=== PATIENT | male | born 1995 | race Caucasian/White ===

== ENCOUNTER 2024-06-13 16:57 | Emergency (ER) | payer BC ==
[~2024-06-13] VITALS: Ht 185.4 cm; Wt 109.1 kg
[2024-06-13 17:02] VITALS: TEMP 97.9
[2024-06-13 17:25] LABS: BASO % 0.6 % (0.0-2.0); EOS # 0.1 K/mm3 (0.0-0.7); EOS % 1.4 % (0.0-4.0); GRAN # 3.2 K/mm3 (1.4-6.5); GRAN % 44.9 % (42.2-75.2); HEMATOCRIT 45.7 % (42.0-52.0); HEMOGLOBIN 15.8 g/dl (13.5-18.0); LYMPH # 3.4 K/mm3 (1.2-3.4); LYMPH % 47.3 % (20.0-51.0); MEAN CELL VOLUME 85 fl (80.0-100.0); MEAN CORPUSCULAR HEMOGLOBIN 29 pg (27-31); MEAN CORPUSCULAR HGB CONC 35 g/dl (33.0-37.0); MONO # 0.4 K/mm3 (0.1-0.6); MONO % 5.5 % (1.7-9.3); PLATELET COUNT 263 K/mm3 (130-400); RED BLOOD COUNT 5.39 M/mm3 (4.20-5.60); REDCELL DISTRIBUTION WIDTH-CV 12.8 % (11.5-14.5)
[2024-06-13] MEDS ORDERED: NS 1,000 ML IV ONE (17:30)
[2024-06-13] MEDS ORDERED: LORazepam 2 MG/ML 1 ML VIAL IV ONE (17:30)
[2024-06-13 18:20] LABS: ALANINE AMINOTRANSFERASE 17 U/L (0-55); ALBUMIN 4.2 g/dL (3.5-5.0); ALKALINE PHOSPHATASE 44 U/L (40-150); ANION GAP 11 mmol/L (7-16); AST,SGOT 16 U/L (5-34); BILIRUBIN,TOTAL 0.4 mg/dL (0.2-1.2); BLOOD UREA NITROGEN 8 mg/dL (9-21); CALCIUM 9.5 mg/dL (8.4-10.2); CHLORIDE 104 mEq/L (98-107); CREATINE KINASE 95 U/L (30-200); CREATININE, serum 0.86 mg/dL (0.72-1.25); GLUCOSE 105 mg/dL (70-99); POTASSIUM 3.8 mEq/L (3.5-4.5); SODIUM 138 mEq/L (136-145); TOTAL PROTEIN 7.1 g/dl (6.2-8.1)
[2024-06-13 18:40] LABS: TROPONIN-I < 0.010 ng/mL (0.00-0.033)
[2024-06-13] MEDS ORDERED: ATARAX 25MG25 MG/TAB PO (19:12)
[2024-06-13 19:40] VITALS: BP 145/91; PULSE 81
== END 2024-06-13 20:12 | disposition home or self-care (01) ==
LOC: COL.ER 16:57
PROVIDERS: Nurse Practitioner
DX: R07.9 Chest pain, unspecified (principal); F41.9 Anxiety disorder, unspecified
CPT/HCPCS: J2060; J7030